=== PATIENT | male | born 1995 | race Caucasian/White ===

== ENCOUNTER 2025-01-15 01:04 | Observation (INO) | payer OTHER, SELFPAY ==
[2025-01-15] VITALS (21 sets, daily range): BP systolic 95–123; BP diastolic 48–91; PULSE 47–74; RESP 16–18; TEMP 36.3–36.9; O2SAT 16–100; BMI 24.0; BMI 23.6
--- NOTE | 2025-01-15 01:35 | CT_ITS ---
PROCEDURE: ABDOMEN/PELVIS W IV CONT ONLY 01/15/2025 REASON FOR EXAM: RLQ PAIN TECHNIQUE: Abdomen and pelvis CT with intravenous contrast. Coronal and Sagittal reconstruction series were provided. PATIENT PREPARATION: Per protocol ORAL CONTRAST TYPE: None. CONTRAST: 75 cc Isovue 370 IV One or more dose reduction techniques were used (e.g., Automated exposure control, adjustment of the mA and/or kV according to patient size, use of iterative reconstruction technique. RADIATION DOSE SUMMARY: CTDlvol: 9.97 mGy DLP: 394.43 mGycm COMPARISON: None available FINDINGS: The lung bases are clear. The liver, adrenal glands, kidneys, contracted gallbladder, pancreas and spleen appear within limits. Abdominal aorta appears within limits. No adenopathy identified. No bowel dilation or free air. The appendix is mildly large in size at 8 mm with diffuse mild prominence of the appearance of the wall and adjacent fluid, edema concerning for possible early acute appendicitis. No abscess identified. Very small pelvic free fluid. The bladder appears within limits. Visualized osseous structures appear within limits. CT/Abdomen/Pelvis W IV Cont ONLY IMPRESSION: The appendix is mildly large in size at 8 mm with diffuse mild prominence of th e appearance of the wall and adjacent fluid, edema concerning for possible early acute appendicitis. No abscess identified. Very small pelvic free fluid. Reading Location: [id number]
[2025-01-15] MEDS: 0.9% Normal Saline (1000mL) 1,000 ML 999 ML IV (01:44)
[2025-01-15] MEDS: Ondansetron 4 MG/2 ML Vial IV (01:44)
[2025-01-15] MEDS: Ketorolac 30 MG/ML Syringe IV (01:44)
[2025-01-15 01:58] LABS: Basophil# 0.03 X10^3/uL; Basophil% 0.3 % (0-1); Eosinophil# 0.16 X10^3/uL; Eosinophils% 1.5 % (0-5); Hemoglobin 12.6 g/dL (13.0-16.5); Lymphocyte % 16.1 % (19-41); Mean Corpuscular Hgb 29.8 pg (27.0-32.0); Mean Corpuscular Volume 85.1 fL (80-94); Mean Platelet Vol. 8.7 fl (6.2-12.0); Monocyte# 0.64 X10^3/uL; Monocyte% 6.1 % (0-10); NRBC Flagged by Analyzer 0 % (0-5); Neutrophil # 7.99 X10^3/uL (2.7-7.7); Neutrophil % 75.7 % (47-70); Platelet Count 262 K/mm3 (150-450); RBC Distribution Width CV 12.5 % (11.6-14.6); RBC Distribution Width SD 38.5 fl (35.1-43.9); Red Blood Count 4.23 M/mm3 (4.6-6.2); White Blood Count 10.6 K/mm3 (4.4-11.0)
--- NOTE | 2025-01-15 02:08 | EDS_ITS ---
HPI History of Present Illness Chief Complaint: Abd Pain Informant: patient and family Narrative Narrative: Patient is a 30-year-old male with no significant past medical history. He states that he ate lunch today and after doing so he developed some generalized abdominal discomfort with nausea. He states he felt it was related to just something he ate. However as the day progressed he then had a bout of vomiting and he states around 9 PM his pain worsened and moved to the right lower quadrant. He denies any fevers chills or known sick contact. He states there has been no dysuria or hematuria. He states because of the increasing pain in his location he has concern for appendicitis and therefore comes in for evaluation [facility] Medical History History of broken leg Home Medications ?Medication ?Instructions ?Recorded ?Last Taken ?Type NK 01/15/25 Unknown History Allergy/AdvReac Type Severity Reaction Status Date / Time No Known Allergies Allergy Verified 01/15/25 02:25 Social History Smoking Status: Never smoker ROS ROS ED Constitutional Constitutional ED: Denies chills or fever(s) ENT ENT ED: Denies sore throat Cardiovascular Cardiovascular: Denies chest pain Respiratory/Chest Respiratory/Chest: Denies cough or dyspnea Gastrointestinal Gastrointestinal: Reports abdominal pain, nausea and vomiting; Denies diarrhea Genitourinary Genitourinary ED: Denies dysuria or hematuria Musculoskeletal Musculoskeletal: Denies back pain or myalgias Integumentary Denies rash Neurologic Neurologic: Denies headache(s) Hematologic/Lymphatic Hematologic/Lymphatic: Denies easy bleeding or easy bruising EXAM Physical Exam Const Vital Signs: 01/15/25 01:05 Temperature 98.4 F Temperature Source Oral Pulse Rate 74 Respiratory Rate 16 Blood Pressure 118/91 H Blood Pressure Mean 100 Pulse Ox 100 Oxygen Delivery Method Room Air Positive well nourished and well developed General Appearance ED: well developed; Negative for pallor HEENT Reports moist mucous membranes HEENT Narrative: No tongue or lip swelling no oral lesions no airway edema or compromise No findings in the posterior pharynx to suggest infection Eyes PERRL and EOMs intact bilaterally General Eye ED: Negative for scleral icterus Neck supple Resp normal respiratory effort and clear to auscultation bilaterally Resp Narrative: No nasal flaring retractions tachypnea or accessory muscle use Cardio regular rate and regular rhythm GI non-distended and no masses GI Narrative: Abdomen is soft and nondistended with normal active bowel sounds. There is pain with palpation in the right lower quadrant over McBurney's point with voluntary guarding. Rebound tenderness is present as well. Positive heel strike. No pulsatile mass or fluid wave Auscultation: normoactive bowel sounds Palpation: soft Back/Spine no CVA tenderness Extremity normal to inspection Neuro oriented x3, CN's II-XII intact bilaterally and no sensory deficits noted Sensorium / Orientation: alert Motor Exam: strength 5/5 throughout Psych mental status grossly normal Skin no rashes or lesions noted and no wounds General Skin Exam: Negative for jaundice or pallor MDM MDM MDM Narrative Medical decision making narrative: Patient arrived to the ER with stable vitals. However he reported generalized abdominal discomfort migrating to the right lower quadrant over the course of 12 hours. On exam he has guarding in the right lower quadrant with positive rebound tenderness concerning for acute appendicitis. Patient could also have atypical presentation for kidney stone or UTI or intestinal infection such as colitis/enteritis. Basic blood work was obtained as well as a CT scan with IV contrast. Labs revealed no clinically significant findings. CT scan showed a dilated inflamed appendix consistent with appendicitis without other acute findings. Secondary to his acute appendicitis and need for most likely surgical intervention/appendectomy case was discussed with general surgeon Dr. Page. He agrees to admit the patient to his service to continue to monitor and will most likely take the patient for an appendectomy in the morning. This plan of care was discussed with the patient who is agreeable to it and therefore will be admitted to the general surgery service for further evaluation and treatment of his appendicitis History & Record Review Discussion w/independent historian: Patient and Family Lab Data Attestation: I reviewed the patient's lab results. Labs: Laboratory Results - last 24 hr 01/15/25 01/15/25 01:45 02:08 WBC 10.6 RBC 4.23 L Hgb 12.6 L Hct 36.0 L MCV 85.1 MCH 29.8 MCHC 35.0 RDW Std Deviation 38.5 RDW Coeff of Edgard 12.5 Plt Count 262 MPV 8.7 Immature Gran % (Auto) 0.300 Neut % (Auto) 75.7 H Lymph % (Auto) 16.1 L [place] % (Auto) 6.1 Eos % (Auto) 1.5 Baso % (Auto) 0.3 Absolute Neuts (auto) 8.0 H Absolute Lymphs (auto) 1.70 Nucleated RBC % 0 Sodium 138 Potassium 4.1 Chloride 103 Carbon Dioxide 22.9 Anion Gap 12 BUN 10 Creatinine 0.91 Estim Creat Clear Calc 111.98 Est GFR (MDRD) Non-Af 117 BUN/Creatinine Ratio 10.8 Glucose 108 H Lactic Acid < 1.0 Calcium 9.0 Total Bilirubin 0.26 Direct Bilirubin 0.14 AST 31 ALT 23 Alkaline Phosphatase 50 Total Protein 6.4 Albumin 4.2 Globulin 2.2 Lipase 20 Urine Color Straw Urine Clarity Clear Urine pH 7.0 Ur Specific [place] 1.005 Urine Protein 15 H Urine Glucose (UA) Normal Urine Ketones Negative Urine Occult Blood Negative Urine Nitrite Negative Urine Bilirubin Negative Urine Urobilinogen Normal Ur Leukocyte Esterase Negative Urine RBC 0 SEEN Urine WBC 0 SEEN Ur Squamous Epith Cells 0 SEEN Urine Bacteria 0 SEEN Urine Mucus 0 SEEN Radiography Diagnostic Testing: Clinical Impression(s) from Imaging Studies Abdomen/Pelvis CT 01/15/25 01:35 IMPRESSION: The appendix is mildly large in size at 8 mm with diffuse mild prominence of the appearance of the wall and adjacent fluid, edema concerning for possible early acute appendicitis. No abscess identified. Very small pelvic free fluid. Reading Location: [id number] Discharge Plan Dx/Rx/DC Orders Clinical Impression: Acute appendicitis Disposition Disposition: Acute Care Hospital [facility] Discharge Date/Time: 01/15/25 03:42
[2025-01-15] MEDS: Piperacil/Tazobactam 3.375 GM in 0.9% Normal Saline (50mL MB+) 50 ML IV ×2 (02:09→06:25)
[2025-01-15 02:28] LABS: Lipase 20 U/L (13-75)
[2025-01-15 02:39] LABS: Bacteria 0 SEEN /hpf (None Seen); Mucous, Urine 0 SEEN /hpf (<or=2+); Red Blood Cells-Urine 0 SEEN /hpf (0-5); Squamous Epithelial Cells - UA 0 SEEN /hpf (0-5); White Blood Cells 0 SEEN /hpf (0-5)
[2025-01-15 02:41] LABS: Color, Urine Straw (Yellow); Glucose, Dipstick Normal (Normal); Ketone-Dipstick Negative (Negative); Leukocyte Esterase-Dipstick Negative /ul (Negative); Nitrite-Dipstick Negative (Negative); Occult Blood-Urine Negative /ul (Negative); Protein-Dipstick 15 mg/dl (Negative); Specific Gravity, Urine 1.005 (1.002-1.030); Urine Bilirubin Dipstick Negative (Negative); Urine Clarity Clear (Clear); Urine Urobilinogen Normal (Normal)
[2025-01-15 03:04] LABS: Lactic Acid < 1.0 mmol/L (0.0-2.0)
[2025-01-15 03:09] LABS: AST(SGOT) 31 U/L (<=37); Alanine Aminotransfer ALT/SGPT 23 U/L (<=46); Albumin, Serum 4.2 g/dL (3.5-5.0); Alkaline Phosphatase 50 U/L (40-129); Anion Gap 12 (5-15); BUN 10 mg/dL (4-19); BUN/Creat Ratio 10.8 RATIO (10-20); Bilirubin, Direct 0.14 mg/dL (0.00-0.30); Carbon Dioxide 22.9 mmol/L (21.0-32.0); Chloride 103 mmol/L (98-108); Creatinine, Serum 0.91 mg/dL (0.70-1.20); EST Glomerular Filtration Rate 117 (>60); Estimated Creatinine Clearance 111.98 ml/min (50-250); Globulin 2.2 g/dL (2.2-4.2); Glucose 108 mg/dL (70-99); Potassium 4.1 mmol/L (3.3-5.1); Protein, Total 6.4 g/dL (5.9-8.4); Sodium Level 138 mmol/L (133-145); Total Bilirubin 0.26 mg/dL (0.00-1.30)
--- NOTE | 2025-01-15 05:44 | HP.PCM_ITS ---
HPI - General General Date of Admission: 01/15/25 Date of Service: 01/15/25 Chief Complaint: Appendicitis/right lower quadrant pain HPI Narrative LORI KINGSLEY, is a 30 M who presented overnight to the [facility] emergency department with abdominal pain in the right lower quadrant. He is otherwise healthy without any significant past medical history or history of abdominal surgery. He states that around noon yesterday he began having some abdominal discomfort along with nausea. As the day progressed his pain persisted and then migrated to the right lower quadrant. He did have some subjective chills. He was unaware of a fever. He presented to the emergency room where he was seen by the ER staff. Laboratory testing was performed and his white count was normal. CT scan was performed and showed findings consistent with mild early appendicitis. He was subsequently admitted with plans for appendectomy this morning. Currently states his pain is well- controlled. He denies any other issues or problems to speak of [facility] Medical History History of broken leg Home Medications ?Medication ?Instructions ?Recorded ?Last Taken ?Type NK 01/15/25 Unknown History Allergy/AdvReac Type Severity Reaction Status Date / Time No Known Allergies Allergy Verified 01/15/25 02:25 Social History Smoking Status: Never smoker ROS Constitutional Constitutional: Reports systems reviewed and no addt'l complaints, except as documented Eyes Eyes: Reports systems reviewed and no addt'l complaints, except as documented ENT HEENT: Reports systems reviewed and no addt'l complaints, except as documented Cardiovascular Cardiovascular: Reports systems reviewed and no addt'l complaints, except as documented Respiratory/Chest Respiratory/Chest: Reports systems reviewed and no addt'l complaints, except as documented Gastrointestinal Gastrointestinal: Reports systems reviewed and no addt'l complaints, except as documented Genitourinary Genitourinary: Reports systems reviewed and no addt'l complaints, except as documented Vital Signs Vital Signs Vital Signs: 01/15/25 01:05 01/15/25 03:00 01/15/25 03:26 Temperature 98.4 F 98.3 F Temperature Source Oral Pulse Rate 74 60 63 Respiratory Rate 16 18 18 Respiratory Effort Blood Pressure 118/91 H 123/65 H 116/48 L Blood Pressure Mean 100 84 70 Blood Pressure Source Blood Pressure Position Blood Pressure Location Pulse Ox 100 98 99 Oxygen Delivery Method Room Air Room Air 01/15/25 03:27 01/15/25 03:49 01/15/25 04:15 Temperature 98.3 F 98.1 F Temperature Source Oral Oral Pulse Rate 63 53 L Respiratory Rate 18 16 Respiratory Effort Normal Non-Labored Blood Pressure 116/48 L 102/60 Blood Pressure Mean 70 74 Blood Pressure Source Monitor Blood Pressure Position Semi-Fowlers Blood Pressure Location Left Arm Pulse Ox 99 100 Oxygen Delivery Method Room Air Room Air Room Air Weight Weight: 150 lb 12.739 oz Body Mass Index (BMI) 23.6 Physical Exam Narrative The patient is alert and oriented x 3. He is in no acute distress. Head is normocephalic and atraumatic. Pupils are equal round and reactive to light. Abdomen is soft and nondistended. Mild tenderness in the right lower quadrant. Resp normal respiratory effort Cardio regular rate and regular rhythm Results Lab / Micro Data 01/15/25 01:45 01/15/25 01:45 Labs: Laboratory Results - last 24 hr 01/15/25 01:45: WBC 10.6, RBC 4.23 L, Hgb 12.6 L, Hct 36.0 L, MCV 85.1, MCH 29.8, MCHC 35.0, RDW Std Deviation 38.5, RDW Coeff of Edgard 12.5, Plt Count 262, MPV 8.7, Immature Gran % (Auto) 0.300, Neut % (Auto) 75.7 H, Lymph % (Auto) 16.1 L, [place] % (Auto) 6.1, Eos % (Auto) 1.5, Baso % (Auto) 0.3, Absolute Neuts (auto) 8.0 H, Absolute Lymphs (auto) 1.70, Nucleated RBC % 0, Sodium 138, Potassium 4.1, Chloride 103, Carbon Dioxide 22.9, Anion Gap 12, BUN 10, Creatinine 0.91, Estim Creat Clear Calc 111.98, Est GFR (MDRD) Non-Af 117, BUN/Creatinine Ratio 10.8, Glucose 108 H, Lactic Acid < 1.0, Calcium 9.0, Total Bilirubin 0.26, Direct Bilirubin 0.14, AST 31, ALT 23, Alkaline Phosphatase 50, Total Protein 6.4, Albumin 4.2, Globulin 2.2, Lipase 01/15/25 02:08: Urine Color Straw, Urine Clarity Clear, Urine pH 7.0, Ur Specific [place] 1.005, Urine Protein 15 H, Urine Glucose (UA) Normal, Urine Ketones Negative, Urine Occult Blood Negative, Urine Nitrite Negative, Urine Bilirubin Negative, Urine Urobilinogen Normal, Ur Leukocyte Esterase Negative, Urine RBC 0 SEEN, Urine WBC 0 SEEN, Ur Squamous Epith Cells 0 SEEN, Urine Bacteria 0 SEEN, Urine Mucus 0 SEEN Imaging Radiology Impression Abdomen/Pelvis CT 01/15/25 01:35 IMPRESSION: The appendix is mildly large in size at 8 mm with diffuse mild prominence of the appearance of the wall and adjacent fluid, edema concerning for possible early acute appendicitis. No abscess identified. Very small pelvic free fluid. Reading Location: [id number] Assessment & Plan Assessment/Plan (1) Acute appendicitis: PLAN: Plan The patient is a 30-year-old male with acute appendicitis. I have offered him a laparoscopic appendectomy as treatment. He was given IV antibiotics scheduled as well as in the emergency department. We discussed the details of the planned surgery as well as risks benefits and alternatives. He wishes to proceed. Surgery will begin shortly. Charges/Coding Visit Charges Inpatient E&M: 07907 Init Hosp L3
--- NOTE | 2025-01-15 06:17 | PRE.ANES_ITS ---
ASA Classification* ASA Classification ASA Classification: 1 and E Assessment & Plan Anesthesia* Anesthesia Assessment Anesthesia Assessment: Discussed sedation and/or anesthesia options, risks, benefits, and alternatives with patient/parents/legal guardian/POA. Questions invited. The patient/parents/legal guardian/POA seems to understand and agrees to proceed with anesthesia plan. Reviewed the physical assessment, medical history, allergy history and patient home medications list prior to surgery/procedure/anesthetic and documented any changes. Performed airway and anesthesia risk assessments. Anesthesia Type Anesthesia Type: General History Source History Obtained from:: Patient and Chart Anesthesia Focused Assessment* Temperature: 98.1 F Pulse Rate: 53 Blood Pressure: 102/60 Respiratory Rate: 16 Pulse Ox: 100 Oxygen Delivery Method: Room Air Airway Assessment Mouth opens: >3 cm Mallampati Score: III Teeth Condition: Missing (Missing tooth #9.) Neck Range of motion (ROM): Full ROM Focused Labs Anesthesia Preop lab: CBC WBC 10.6 K/mm3 (4.4-11.0) 01/15/25 01:45 01/15/25 RBC 4.23 M/mm3 (4.6-6.2) L 01/15/25 01:45 01/15/25 Hgb 12.6 g/dL (13.0-16.5) L 01/15/25 01:45 5 Hct 36.0 % (40-54) L 01/15/25 01:45 01/15/25 Plt Count 262 K/mm3 (150-450) 01/15/25 01:45 01/15/25 CHEMISTRY Potassium 4.1 mmol/L (3.3-5.1) 01/15/25 01:45 01/15/25 Sodium 138 mmol/L (133-145) 01/15/25 01:45 01/15/25 BUN 10 mg/dL (4-19) 01/15/25 01:45 01/15/25 Creatinine 0.91 mg/dL (0.70-1.20) 01/15/25 01:45 01/15/25 Glucose 108 mg/dL (70-99) H 01/15/25 01:45 01/15/25 COAG Pre-Assessment Diagnosis/Proposed Procedure Planned Operative Procedure(s): Laparoscopic appendectomy. Anesthesia History Anesthesia History - claims account manager: Anesthesia History - claims account manager Hx Hospitalization Any Problems With Anesthesia No 01/15/25 04:12 Cholinesterase deficiency No 01/15/25 04:12 You/Your Family Experience No 01/15/25 04:12 fever (hyperthermia) with Relationship Recent Exposure to Contagious No 01/15/25 04:12 Disease Does patient have nerve No 01/15/25 04:12 stimulator Patient instructed to have device shut off --Does patient have Pacemaker No 01/15/25 04:30 or ICD? When Was Last Pacemaker Check QUESTION #4 FULL TEXT: You/Your Family Experience fever (hyperthermia) with Anesthesia Last Oral Intake Last Oral intake: Last Oral Intake NPO since 23:00 01/15/25 04:30 Meds taken in AM with sips of No 01/15/25 04:30 water? Meds patient instructed to take am of surgery PONV PONV - claims account manager: PONV - claims account manager Female HX of Motion Sickness HX of N/V After Surgery Non-Smoker Duration of Surgery greater than 60 minutes Number of Risk Factors PONV Score Height & Weight Height & Weight: Anesthesia: Height & Weight Height 5 ft 7 in 01/15/25 04:30 Weight: 68.4 kg 01/15/25 04:30 Body Mass Index (BMI) 23.6 01/15/25 04:30 Respiratory Assessment Respiratory Assessment - claims account manager: Respiratory Tract Infection Hx - claims account manager Hx Respiratory Tract Infection No 01/15/25 04:12 STOP Sleep Apnea STOP Sleep Apnea - claims account manager: STOP Sleep Apnea - claims account manager Hx Hypertension No 01/15/25 03:49 Hx Sleep Apnea No 01/15/25 03:49 CPAP BIPAP Do you snore loudly (louder No 01/15/25 03:49 than talking or can be heard Do you often feel tired/ No 01/15/25 03:49 fatigued/ sleepy during daytime? Has anyone observed you stop No 01/15/25 03:49 breathing during sleep? STOP Results Negative 01/15/25 03:49 QUESTION #5 FULL TEXT : Do you snore loudly (louder than talking or can be heard through closed doors)? Tobacco Use History Tobacco Use History - claims account manager: Tobacco Use History - claims account manager Tobacco Use Smoking Status Never smoker 01/15/25 03:49 Hx Tobacco Use No 01/15/25 03:49 Years Smoking Packs Smoked per Day Smoking Cessation Date was within the last 15 years Hx Smoking Cessation Date Hx Smoking Cessation Counseling Hematologic Medial History Hematologic Hx - claims account manager: Hematologic Medical Hx - documentation liaison Hx of Blood Transfusion No 01/15/25 03:49 Hx of Transfusion in last 3 No 01/15/25 03:49 Months Date of Last Transfusion (if within last 3 months) Ever experience any problems No 01/15/25 03:49 with transfusion(s)? Specify any problems Hx of Preganancy in last 3 N/A 01/15/25 03:49 Months Nurse Filling Out Transfusion EVIZZO 01/15/25 03:49 & Questions: Date: 01/15/25 01/15/25 03:49 Time: 04:06 01/15/25 03:49 Patient unable to answer at this time (ie. confused, unrespo /Reproduction History /Reproductive History - claims account manager: /Reproductive Hx- claims account manager Hx Now No 01/15/25 04:12 Gestational Age (in weeks): EDC: Hx Hx Para Hx Section SAB No 01/15/25 04:12 Active Medications Active Medications: Current Medications Generic Name Dose Route Start Last Admin Trade Name Freq PRN Reason Stop Dose Admin Acetaminophen 1,000 mg 01/15/25 06:00 01/15/25 04:59 Acetaminophen 500 Mg Tablet PO Not Given Q8 CHICA Sodium Chloride 250 mls @ 15 mls/hr 01/15/25 03:50 IV .[id number] PRN Saline Flush Sodium Chloride 250 mls @ 15 mls/hr 01/15/25 03:50 IV .[id number] PRN Additional IVPB Infusion Piperacillin Sod/Tazobactam 50 mls @ 12.5 mls/hr 01/15/25 08:00 Sod 3.375 gm/ Sodium Chloride IV Q8 CHICA Morphine Sulfate 2 - 4 mg 01/15/25 04:10 Morphine 2 Mg/Ml Syringe IV Q3H PRN PRN Pain Score 6-10 Nutritional Formula (Lactose Free) 120 ml 01/15/25 10:00 Ensure Plus High Protein 120 Ml Liquid PO 4X/DAY CHICA Ondansetron HCl 4 mg 01/15/25 04:10 Ondansetron 4 Mg/2 Ml Vial IV Q8H PRN PRN NAUSEA/VOMITING Oxycodone HCl 5 mg 01/15/25 04:10 Oxycodone 5 Mg Tablet PO Q4H PRN PRN Pain Score 4-10 Sodium Chloride 10 - 40 ml 01/15/25 03:50 0.9% Saline Lock 10 Ml Syringe IV UD PRN SALINE FLUSH PFSH Medical History History of broken leg Home Medications ?Medication ?Instructions ?Recorded ?Last Taken ?Type NK 01/15/25 Unknown History Allergy/AdvReac Type Severity Reaction Status Date / Time No Known Allergies Allergy Verified 01/15/25 02:25 Surgical History (Updated 01/15/25 @ 06:[address] Dwayne Zaragoza MD) Wrist fracture, right Social History Smoking Status: Never smoker Review of Systems (Anesthesia) ROS Narrative System reviewed and no additional complaints, except as documented.
--- NOTE | 2025-01-15 06:20 | APP_PTH ---
PATIENT: LORI KINGSLEY I LOC: MS3 U#:[id number] AGE/SX: 30/M ROOM: DC312 RE01/15/[address]: Dr. Vaughn Page MD : 1995 BED: 1 DIS: 01/15/2025 SPEC #: [id number] RECD: 01/17/25 08:15 STATUS: JAX REuJly #: [id number] BILLY: 01/15/25 06:[address]: Vaughn Page DEPT: SURGICAL PATHOLOGY RECD BY: Inderjit Cabello ENTERED: 01/17/25 08:45 SP TYPE: APPENDIX OT DR: Carolyn Primary Care Phys Tissues: A - Appendix, NOS Procedures: Surgery Specimen Level III HEADER OPERATION: Laparoscopic, appendectomy PRE-OP DIAGNOSIS: Acute appendicitis TISSUE SUBMITTED: A- Appendix MICROSCOPIC DIAGNOSIS A. Appendix, appendectomy: Acute appendicitis. MICROSCOPIC DESCRIPTION Slides are reviewed. GROSS DESCRIPTION A. Received in formalin in a container labeled with the patient's name, date of , and appendix is a 7.0 cm in length by 0.8 cm in diameter intact appendectomy specimen with mesoappendix measuring 0.9 cm in greatest thickness. The serosa is medrano-leahy with a scant amount of adherent white possible exudate. The stapled resection margin is inked black, and serial sections reveal an average lumen of 0.2 cm filled with brown, softened fecal material. No distinct perforation or fecalith is identified. There is an average wall thickness of 0.3 cm. Dextrine Mixer sections:A1. Resection margin, en face with cross-sectionsA2. Tip, bisected [facility] 01-17-2025 CPT:87057
[2025-01-15] MEDS: Bupiv/Epi 0.25% 30 ML Vial (06:59)
--- NOTE | 2025-01-15 07:22 | PCM.OPRPT ---
Problems Associated Problem List Diagnoses (1) Acute appendicitis: Procedures Digestive 40xxx-49xxx: [id number] Laparoscopy appendectomy Operative Report (Standard) Operative Information Date of Procedure: 01/15/25 Pre-Operative Diagnosis: Acute appendicitis Post-Operative Diagnosis: Acute appendicitis Surgery/Procedure Performed: Laparoscopic appendectomy rail filler: Yes Wireless Architect: Sheron Hernandez Tasks completed by engineer first assistant: Closing, Retracting and Other Additional human resources assistant?: No Type of Anesthesia: General RN Documented Start/Stop Times: Operation Date: 01/15/25 06:20 Case Time Anesthesia Start 01/15/25 06:20 Into Room 01/15/25 06:20 Procedure Start 01/15/25 06:45 Procedure End 01/15/25 07:05 Procedure Start Time: 06:45 Procedure Stop Time: 07:05 Select all DRAINS/GRAFTS/IMPLANTS that apply: None Special Medications: IV Zosyn Estimated Blood Loss: Minimal Specimen collected: Yes Description of specimen(s) removed: Appendix Description of surgery: Patient is a 30-year-old male who presented to the emergency department overnight with right lower quadrant pain. Workup including a CAT scan revealed early appendicitis. He was subsequently admitted with plans for appendectomy this morning. We discussed the details of the planned laparoscopic appendectomy and he wished to proceed. We discussed the risks and benefits of surgery as well. The patient was brought to the operating room today following informed consent. Antibiotics were given and a timeout performed. He was placed supine on the operative table with arms outstretched and arm boards. A general endotracheal anesthesia was induced. Once adequately anesthetized, his arms were comfortably tucked at his sides. The abdomen is then clipped prepped and draped in the usual sterile manner. A 5 mm incision was made just below the umbilicus which a 5 mm trocar was placed optically. This was placed without incident. Once in place the abdomen is then fully insufflated with CO2 gas. A 5 mm 0 degree scope was inserted. There was no signs of bowel or vascular injury next a 5 mm trocar was placed in the left lower quadrant and a 12 mm trocar was placed in the left upper quadrant. Both of these were placed with direct visualization and without incident. Bowel graspers were then inserted in the right lower quadrant was then evaluated. The cecum was grasped and reflected in a cephalad direction. This then exposed the appendix. The appendix was grasped near the base. A [place] dissector was then used to create a small window in the mesentery near the base of the appendix. A JESSICA stapler was then fired across the base of the appendix flush with the cecum. A vascular load was then fired across the mesoappendix. The specimen was then free. It was then placed into a bag and brought out through the 12 mm trocar site. The fascial closure device was then utilized to close the fascia at the 12 mm trocar site using Prolene. This closed the defect nicely. The right lower quadrant was then examined. Hemostasis was excellent at the staple lines. Insufflation was allowed to escape. The trocars were then removed. Local anesthetic was injected in each of the incisions. The incisions were then closed with 4-0 Vicryl. Skin glue was applied as dressing. He was awakened from anesthesia and taken recovery in good condition Surgical Findings: Mild acute appendicitis Complications Complications: No Admit VTE Documentation VTE Present on Admission: No VTE Mechan Device Prophylaxis: SCD's VTE Pharm Prophylaxis ordered?: No Reason prophylaxis not ordered: Treatment Not Indicated
--- NOTE | 2025-01-15 07:26 | PCM.POST.ANE ---
Anesthesia: Postop Eval I Current Vital Signs Temperature: 97.4 F Pulse Rate: 59 Blood Pressure: 104/67 Respiratory Rate: 16 Pulse Ox: 99 Oxygen Delivery Method: Room Air Assessment Airway patent: Yes Spontaneous unlabored respirations: Yes Mental status: Asleep nausea: No Vomiting: No Anesthesia Complication: No Fluid Hydration Crystalloid volume administer (ml): 500 Total IV fluid infused: 500 Progress Note Anesthesia document: Postop Eval 1 completed: Yes
--- NOTE | 2025-01-15 08:45 | NURSING ---
Pt just arrived back to room from PACU. This RN in room with pt. Ice water given and explained Transitional diet to pt.
--- NOTE | 2025-01-15 09:18 | PCM.POSTANE2 ---
Anesthesia Postop Eval I Sum Postop Eval Completion status Anesthesia document: Postop Eval 1 completed: Yes Anesthesia Postop Eval I Summary Anesthesia Postop Eval I Summary: Anesthesia Postop Eval I: Assessment Summary Airway patent Yes 01/15/25 07:29 Spontaneous unlabored Yes 01/15/25 07:29 respirations Mental status Asleep 01/15/25 07:29 nausea No 01/15/25 07:29 Vomiting No 01/15/25 07:29 Anesthesia Postop Eval I: Fluid Summary Crystalloid volume administer 500 01/15/25 07:29 (ml) Colloids volume administered ( ml) Blood Product volume administered (ml) Total IV fluid infused 500 01/15/25 07:29 Anesthesia Postop Eval I: Summary Notes Anesthesia Complication No 01/15/25 07:29 Anesthesia Complication Comment: Post-operative progress note Anesthesia: Postop Eval II Evaluation Mental status: Awake and Calm Pain Level: 1 nausea: No Vomiting: No Complications Anesthesia Complication: No
[2025-01-15] MEDS: oxyCODONE 5 MG Tablet PO (09:49)
--- NOTE | 2025-01-15 13:56 | PCM.DC.SUM ---
Providers Date of Admission: 01/15/25 Date of Discharge: 01/15/25 Primary Care Physician: No Primary Care Phys Reason For Visit: APPENDICITIS Diagnosis Discharge Diagnosis (1) Acute appendicitis: Status: Acute Code(s): K35.80 - Unspecified acute appendicitis Plan The patient is a 30-year-old male with acute appendicitis. I have offered him a laparoscopic appendectomy as treatment. He was given IV antibiotics scheduled as well as in the emergency department. We discussed the details of the planned surgery as well as risks benefits and alternatives. He wishes to proceed. Surgery will begin shortly. Medications at Discharge Home Medications NK 01/15/25 oxycodone-acetaminophen 5 mg-325 mg tablet (Percocet) 1 tab PO Q8H PRN pain 4 days #10 tabs 01/15/25 Hospital Course Operations appendectomy Summary of Care Provided Minutes Spent on Discharge: 15 Physical Exam Const oriented x3 and no apparent distress Weight / BMI Weight Weight: 150 lb 12.739 oz Body Mass Index (BMI) 23.6 ABG / Lab / Microbiology Data 01/15/25 01:45 01/15/25 01:45 Laboratory: Laboratory Results - last 24 hr 01/15/25 01:45: WBC 10.6, RBC 4.23 L, Hgb 12.6 L, Hct 36.0 L, MCV 85.1, MCH 29.8, MCHC 35.0, RDW Std Deviation 38.5, RDW Coeff of [place] 12.5, Plt Count 262, MPV 8.7, Immature Gran % (Auto) 0.300, Neut % (Auto) 75.7 H, Lymph % (Auto) 16.1 L, [place] % (Auto) 6.1, Eos % (Auto) 1.5, Baso % (Auto) 0.3, Absolute Neuts (auto) 8.0 H, Absolute Lymphs (auto) 1.70, Nucleated RBC % 0, Sodium 138, Potassium 4.1, Chloride 103, Carbon Dioxide 22.9, Anion Gap 12, BUN 10, Creatinine 0.91, Estim Creat Clear Calc 111.98, Est GFR (MDRD) Non-Af 117, BUN/Creatinine Ratio 10.8, Glucose 108 H, Lactic Acid < 1.0, Calcium 9.0, Total Bilirubin 0.26, Direct Bilirubin 0.14, AST 31, ALT 23, Alkaline Phosphatase 50, Total Protein 6.4, Albumin 4.2, Globulin 2.2, Lipase 20 01/15/25 02:08: Urine Color Straw, Urine Clarity Clear, Urine pH 7.0, Ur Specific [place] 1.005, Urine Protein 15 H, Urine Glucose (UA) Normal, Urine Ketones Negative, Urine Occult Blood Negative, Urine Nitrite Negative, Urine Bilirubin Negative, Urine Urobilinogen Normal, Ur Leukocyte Esterase Negative, Urine RBC 0 SEEN, Urine WBC 0 SEEN, Ur Squamous Epith Cells 0 SEEN, Urine Bacteria 0 SEEN, Urine Mucus 0 SEEN Radiography Diagnostic Testing: Radiology Impression Abdomen/Pelvis CT 01/15/25 01:35 IMPRESSION: The appendix is mildly large in size at 8 mm with diffuse mild prominence of the appearance of the wall and adjacent fluid, edema concerning for possible early acute appendicitis. No abscess identified. Very small pelvic free fluid. Reading Location: [id number] Instructions Discharge Diet: Light diet - advance as tolerated May shower in (days): 1 Lifting Restrictions: no lifting over 20 pounds for 4 weeks Call your doctor if your incision/area has: Continuous Slow Oozing, Sudden Increased Bleeding, Increased Pain/ Swelling, Increased Redness, Foul Smelling Discharge and Swelling at the incision site Call your doctor if you observe: Fever of 101 or Higher Cleanse incision/area with: Soap & Water DC O2, CPAP, BIPAP Needs Home O2 Discharge instructions: No DC home with Oxygen: No Please Follow Up With: Vaughn Page MD When: 2 weeks. call for appointment Meaningful Use Info Meaningful Use Meaningful Use Diagnoses (Choose all that apply): None applicable Ischemic Stroke Statin Dosing Therapy Reference: STATIN DOSE THERAPY REFERENCE: * Patients > 75 years receive moderate or high dose statin therapy. * Patients 75 years or YOUNGER should receive HIGH intensity statin dose unless contraindicated. You will be required to document reason for non-treatment if statin daily dose does not meet guidelines. HIGH DOSE STATIN THERAPY DAILY Atorvastatin > than or = to 40 mg Rosuvastatin > than or = to 20 mg Amlodipine + Atorvastatin > than or = to 2.5/40 mg Ezetimibe + Simvastatin 10/80 mg Simvastatin 80mg Discharge Plan Admission Admit Date/Time: 01/15/25 02:54 Primary Reason for Your Visit: appendicitis Attending Provider: Vaughn Page Primary Care Provider: Care Physician,No Primary Discharge Orders/Prescriptions Prescriptions: New oxycodone-acetaminophen [Percocet] 5-325 mg tablet 1 tab PO Q8H PRN (Reason: pain) 4 Days Qty: 10 0RF Continued NK Referrals / Follow Up: Care Physician,No Primary [Primary Care Provider] - Disposition Disposition (needs filled in before D/C Order can be placed): Home, Self Care
[2025-01-15] MEDS: Acetaminophen 500 MG Tablet 1000 MG PO (15:11)
== END 2025-01-15 15:26 | disposition home or self-care (01) ==
LOC: ED 02:54 → MS3 03:27
PROVIDERS: Admitting Provider Surgery; Emergency Provider Emergency Medicine; Visit Provider Surgery
PROC: 0DTJ4ZZ Resection of Appendix, Percutaneous Endoscopic Approach (ICD-10-PCS; CPT 44970; principal; 2025-01-15 06:00)
DX: K35.80 Unspecified acute appendicitis (principal)
CPT/HCPCS: 44970; 00840; 74177; 80048; 80076; 81001; 83605; 83690; 85025; 88304; 94668; 96365; 96375; 99221; 99284; Q9967; A4216; G0378; J2405